=== PATIENT | male | born 1960 | race Caucasian/White ===

== ENCOUNTER 2020-11-06 08:33 | Emergency (ER) | payer OTHER, SELFPAY ==
[2020-11-06 21:10] LABS: SARS-CoV-2 PCR by NAA Not Detected (NotDetected)
== END 2020-11-06 09:38 | disposition home or self-care (01) ==
LOC: NAV ERS 08:33
DX: J06.9 Acute upper respiratory infection, unspecified (principal); Z20.822 Contact with and (suspected) exposure to COVID-19; E78.5 Hyperlipidemia, unspecified; E78.00 Pure hypercholesterolemia, unspecified; I10 Essential (primary) hypertension; Z79.899 Other long term (current) drug therapy
CPT/HCPCS: 99283; U0003; U0005